=== PATIENT | male | born 1995 | race Caucasian/White ===

== ENCOUNTER 2018-07-29 20:40 | Emergency (ER) | payer BC ==
[2018-07-29] MEDS ORDERED: KETOROLAC 30 MG/ML INJ ONE (21:57)
[2018-07-29] MEDS ORDERED: DIAZEPAM 2 MG TABLET ONE (21:58)
--- NOTE | 2018-07-29 22:09 | ER ---
Nurse's Notes [facility] Name: Pramod Cornelius Age: 22 yrs Sex: Male : 1995 Arrival Date: 07/29/2018 Time: 20:45 Bed 10 Private MD: Goran Carrizales Diagnosis: Pain in left shoulder;Muscle spasm of back Presentation: 07/29 20:48 Presenting complaint: Patient states: "I was putting a harness on my dog and I got a aj1 sharp pain in my back and I couldn't stand up straight" Reports this occurred approximately 20 minutes ago. Transition of care: patient was not received from another setting of care. Onset of symptoms was July 29, 2018 at 18:28. Risk Assessment: Do you want to hurt yourself or someone else? Patient reports no desire to harm self or others. Initial Sepsis Screen: Does the patient meet any 2 criteria? No. Patient's initial sepsis screen is negative. Does the patient have a suspected source of infection? No. Patient's initial sepsis screen is negative. Care prior to arrival: None. 20:48 Method Of Arrival: Ambulatory aj1 20:48 Acuity: MAXIMILIAN 4 aj1 Triage Assessment: 20:49 General: Appears in no apparent distress. uncomfortable, Behavior is calm, cooperative, aj1 appropriate for age. Pain: Complains of pain in mid back area Pain currently is 8 out of 10 on a pain scale. Neuro: Level of Consciousness is awake, alert, obeys commands. Cardiovascular: Patient's skin is warm and dry. Respiratory: Airway is patent Respiratory effort is even, unlabored, Respiratory pattern is regular, symmetrical. Musculoskeletal: Range of motion: intact in all extremities. Historical: - Allergies: 20:49 Codeine; aj1 - Home Meds: 20:49 None [Active]; aj1 - PMHx: 20:49 Hypertension; SVT; aj1 - PSHx: 20:49 cardiac ablation; aj1 - Immunization history:: Flu vaccine is not up to date. - Social history:: Smoking status: Patient/guardian denies using tobacco. - Ebola Screening: : Patient denies travel to an Ebola-affected area in the 21 days before illness onset. Screenin:35 Abuse screen: Denies threats or abuse. Denies injuries from another. Nutritional ao screening: No deficits noted. Tuberculosis screening: No symptoms or risk factors identified. Fall Risk None identified. Assessment: 21:30 General: Appears in no apparent distress. uncomfortable, Behavior is appropriate for ao age, anxious. Pain: Complains of pain in back Pain currently is 10 out of 10 on a pain scale. Neuro: Level of Consciousness is awake, alert, obeys commands, Oriented to person, place, time, situation, Appropriate for age Moves all extremities. Full function. Cardiovascular: Capillary refill < 3 seconds Patient's skin is warm and dry. Respiratory: Airway is patent Respiratory effort is even, unlabored, Respiratory pattern is regular, symmetrical. GI: Abdomen is obese. : No signs and/or symptoms were reported regarding the genitourinary system. EENT: No signs and/or symptoms were reported regarding the EENT system. Derm: Skin is intact, Skin is pink, warm \\T\\ dry. normal, Skin temperature is warm. Musculoskeletal: Circulation, motion, and sensation intact. Reports pain in back. Injury Description: Fall from standing position. 22:28 Reassessment: Patient appears in no apparent distress at this time. DC instructions ao given to patient. patient agree with the POC and to Follow up with PCP. Vital Signs: 20:49 BP 153 / 98; Pulse 103; Resp 20; Temp 98.2; Pulse Ox 96% on R/A; Weight 132.9 kg (R); aj1 Height 5 ft. 10 in. (177.80 cm) (R); Pain 8/10; 22:28 BP 145 / 72; Pulse 92; Resp 18; Pulse Ox 100% ; ao 20:49 Body Mass Index 42.04 (132.90 kg, 177.80 cm) aj1 ED Course: 20:45 Patient arrived in ED. es 20:45 Goran Carrizales MD is Private Physician. es 20:49 Triage completed. aj1 20:49 Arm band placed on Patient placed in an exam room. aj1 21:04 Lina Walton [facility]-C [facility]. snw 21:04 Ti Bryant MD is Attending Physician. snw 21:25 Dennis Quintero, RN is Primary Nurse. ao 21:35 Patient has correct armband on for positive identification. Pulse ox on. NIBP on. ao 22:08 Goran Carrizales MD is Referral Physician. snw 22:28 No provider procedures requiring assistance completed. Patient did not have IV access ao during this emergency room visit. Administered Medications: 21:57 Drug: TORadol 60 mg Route: IM; Site: right deltoid; ao 21:59 Drug: Valium 2 mg Route: PO; ao Outcome: 22:09 Discharge ordered by . snw 22:28 Discharged to home ambulatory. ao 22:28 Condition: stable 22:28 Discharge instructions given to patient, Instructed on discharge instructions, follow up and referral plans. Demonstrated understanding of instructions, follow-up care, medications, Prescriptions given X 2. 22:29 Patient left the ED. ao Signatures: Ava Apple, RN RN aj1 Lina Walton, SENIOR LIVING SALES COUNSELOR-C SENIOR LIVING SALES COUNSELOR-Csnw Sindy Shaw Alex RN RN ao
--- NOTE | 2018-07-29 22:09 | EDPHYS ---
Physician Documentation [facility] Name: Pramod Cornelius Age: 22 yrs Sex: Male : 1995 Arrival Date: 07/29/2018 Time: 20:45 Bed 10 Private MD: Goran Carrizales ED Physician Ti Bryant HPI: 07/29 22:13 This 22 yrs old Male presents to ER via Ambulatory with complaints of Back snw Pain. 22:13 The patient presents with pain that is acute, and decreased range of motion. The snw symptoms are located in the left scapular area and left subscapular area. Onset: The symptoms/episode began/occurred suddenly, just prior to arrival. The pain does not radiate. Associated signs and symptoms: Pertinent positives: decreased ROM left shoulder. The problem was sustained when bending over, from twisting. Severity of symptoms: At their worst the symptoms were moderate, severe. The patient has not experienced similar symptoms in the past. It is unknown whether or not the patient has recently seen a physician. Historical: - Allergies: 20:49 Codeine; aj1 - Home Meds: 20:49 None [Active]; aj1 - PMHx: 20:49 Hypertension; SVT; aj1 - PSHx: 20:49 cardiac ablation; aj1 - Immunization history:: Flu vaccine is not up to date. - Social history:: Smoking status: Patient/guardian denies using tobacco. - Ebola Screening: : Patient denies travel to an Ebola-affected area in the 21 days before illness onset. ROS: 22:11 Constitutional: Negative for fever, chills, and weight loss, Eyes: Negative for injury, snw pain, redness, and discharge, ENT: Negative for injury, pain, and discharge, Neck: Negative for injury, pain, and swelling, Cardiovascular: Negative for chest pain, palpitations, and edema, Respiratory: Negative for shortness of breath, cough, wheezing, and pleuritic chest pain, Abdomen/GI: Negative for abdominal pain, nausea, vomiting, diarrhea, and constipation, Back: Negative for injury, positive for pain Skin: Negative for injury, rash, and discoloration, Neuro: Negative for headache, weakness, numbness, tingling, and seizure. 22:11 MS/extremity: Positive for pain, upper left back pain with increased discomfort on rotation of left shoulder. Exam: 22:11 Constitutional: This is a well developed, well nourished patient who is awake, alert, snw and in no acute distress. Head/Face: Normocephalic, atraumatic. Eyes: Pupils equal round and reactive to light, extra-ocular motions intact. Lids and lashes normal. Conjunctiva and sclera are non-icteric and not injected. Cornea within normal limits. Periorbital areas with no swelling, redness, or edema. ENT: Nares patent. No nasal discharge, no septal abnormalities noted. Tympanic membranes are normal and external auditory canals are clear. Oropharynx with no redness, swelling, or masses, exudates, or evidence of obstruction, uvula midline. Mucous membranes moist. Neck: Trachea midline, no thyromegaly or masses palpated, and no cervical lymphadenopathy. Supple, full range of motion without nuchal rigidity, or vertebral point tenderness. No Meningismus. Chest/axilla: Normal chest wall appearance and motion. Nontender with no deformity. No lesions are appreciated. Cardiovascular: Regular rate and rhythm with a normal S1 and S2. No gallops, murmurs, or rubs. Normal PMI, no JVD. No pulse deficits. Respiratory: Lungs have equal breath sounds bilaterally, clear to auscultation and percussion. No rales, rhonchi or wheezes noted. No increased work of breathing, no retractions or nasal flaring. Abdomen/GI: Soft, non-tender, with normal bowel sounds. No distension or tympany. No guarding or rebound. No evidence of tenderness throughout. Skin: Warm, dry with normal turgor. Normal color with no rashes, no lesions, and no evidence of cellulitis. MS/ Extremity: Pulses equal, no cyanosis. Neurovascular intact. Full, normal range of motion. Neuro: Awake and alert, GCS 15, oriented to person, place, time, and situation. Cranial nerves II-XII grossly intact. Motor strength 5/5 in all extremities. Sensory grossly intact. Cerebellar exam normal. Normal gait. 22:11 Back: pain, that is moderate, of the left subscapular area, ROM is painful, with rotation to the right, normal spinal alignment noted, CVA tenderness, is absent, muscle spasm, is appreciated in the left subscapular area. Vital Signs: 20:49 BP 153 / 98; Pulse 103; Resp 20; Temp 98.2; Pulse Ox 96% on R/A; Weight 132.9 kg (R); aj1 Height 5 ft. 10 in. (177.80 cm) (R); Pain 8/10; 22:28 BP 145 / 72; Pulse 92; Resp 18; Pulse Ox 100% ; ao 20:49 Body Mass Index 42.04 (132.90 kg, 177.80 cm) aj1 MDM: 21:04 Patient medically screened. snw 22:12 Data reviewed: vital signs, nurses notes. Data interpreted: Pulse oximetry: on room air snw is 96 %. Interpretation: acceptable. Counseling: I had a detailed discussion with the patient and/or guardian regarding: the historical points, exam findings, and any diagnostic results supporting the discharge/admit diagnosis, the presence of at least one elevated blood pressure reading (>120/80) during this emergency department visit, the need for outpatient follow up, to return to the emergency department if symptoms worsen or persist or if there are any questions or concerns that arise at home. Special discussion: I have referred the patient to see his PCP for further evaluation of high blood pressure. Based on the history and exam findings, there is no indication for further emergent testing or inpatient evaluation. I discussed with the patient/guardian the need to see the orthopedic surgeon for further evaluation of the symptoms. I discussed with the patient/guardian the need to see the primary care provider for further evaluation of the symptoms. Administered Medications: 21:57 Drug: TORadol 60 mg Route: IM; Site: right deltoid; ao 21:59 Drug: Valium 2 mg Route: PO; ao Disposition: 07/30 06:48 Co-signature as Attending Physician, Ti Bryant MD I agree with the assessment and michael plan of care. Disposition: 07/29/18 22:09 Discharged to Home. Impression: Pain in left shoulder, Muscle spasm of back. - Condition is Stable. - Discharge Instructions: Joint Pain, Muscle Cramps and Spasms, Musculoskeletal Pain, Shoulder Pain, Back Exercises, [id number], Cryotherapy, Heat Therapy. - Prescriptions for Diclofenac Sodium 75 mg Oral Tablet Sustained Release - take 1 tablet by ORAL route 2 times per day; 30 tablet. orphenadrine citrate 100 mg Oral Tablet Sustained Release - take 1 tablet by ORAL route 2 times per day As needed; 20 tablet. - Work release form, Medication Reconciliation Form, Thank You Letter, Antibiotic Education, Prescription Opioid Use form. - Follow up: Goran Carrizales MD; When: 2 - 3 days; Reason: Recheck today's complaints, Continuance of care, Re-evaluation by your physician. Follow up: Emergency Department; When: As needed; Reason: Worsening of condition. Signatures: Ava Apple RN RN aj1 Ti Bryant MD MD cha Therrien, Shelly, CENTER MANAGER-C CENTER MANAGER-Csnw Dennis Quintero RN RN ao Corrections: (The following items were deleted from the chart) 07/29 22:29 22:09 07/29/2018 22:09 Discharged to Home. Impression: Pain in left shoulder; Muscle ao spasm of back. Condition is Stable. Forms are Medication Reconciliation Form, Thank You Letter, Antibiotic Education, Prescription Opioid Use. Follow up: Goran Carrizales; When: 2 - 3 days; Reason: Recheck today's complaints, Continuance of care, Re-evaluation by your physician. Follow up: Emergency Department; When: As needed; Reason: Worsening of condition. snw
== END 2018-07-29 22:29 | disposition home or self-care (01) ==
LOC: ER 20:40
DX: M62.830 Muscle spasm of back (principal); I10 Essential (primary) hypertension; Z88.5 Allergy status to narcotic agent
CPT/HCPCS: 96372; 99283

== ENCOUNTER 2022-09-05 22:31 | Emergency (ER) | payer BC, SELFPAY ==
--- OUTSIDE RECORDS SUMMARY | 2022-09-05 22:34 | XMS REPORT | Continuity of Care Document ---
:1995 Author Organization [facility] t Address [address] [place] [address] [place] [address] Care Team Providers Name Role Phone Rowena Vance MD Primary Care Physician DEBBIE BIRD Attending Clinician Unavailable DEBBIE BIRD Attending Clinician Unavailable DEANNE RAJPUT Attending Clinician Unavailable Chepe Bethea Attending Clinician Unknown, Attending Attending Clinician Unavailable CHEPE GRAJEDA Attending Clinician Unavailable Deanne Rajput MD Attending Clinician [facility] Sleep [facility] Attending Clinician Unavailable Debbie Bird MD Attending Clinician Doctor Unassigned, [place] Attending Clinician Unavailable Rafaela Vasquez Attending Clinician RAFAELA SMITH Attending Clinician Unavailable Rowena Vance MD Attending Clinician ROWENA VANCE Attending Clinician Unavailable Lab, Ang - Db Attending Clinician Unavailable Kayce Khan Attending Clinician KAYCE ARIZA Attending Clinician Unavailable DEANNE RAJPUT Admitting Clinician Unavailable RAFAELA SMITH Admitting Clinician Unavailable ROWENA VANCE Admitting Clinician Unavailable Payers Payer Name Policy Type Policy Number Effective Date Expiration Date S [facility] [id number] 2022 00:00:00 Problems Condition Condition Condition Status Onset Resolution Last Treating Co mments Source Name Details Category Date Date Treatment Clinician Date No known No known Disease Unive rs active active ity of problems problems [facility] Allergies, Adverse Reactions, Alerts Allergy Allergy Status Severity Reaction(s) Onset Inactive Treating Comm ents Source Name Type Date Date Clinician Tomer Propensi Active Hallucinatio 2014-10 hallucin a Univers ty to ns 2-18 tions ity of adverse 00:00: [place] reaction 00 Medical s [place] CODEINE DRUG Active Hallucinates 2014-10 Uni vers INGREDI 218 ity of 00:00: [place] 00 Medical Branch Social History Social Habit Start Date Stop Date Quantity Comments Source History of Cigarette Smoker Universi ty of tobacco use [facility] Exposure to 2022-08-04 2022-08-14 Not sure [facility] SARS-CoV-2 00:00:00 11:32:00 [facility] (event) [place] Alcohol intake 2022-06-18 2022-06-18 .29 /d [facility] 00:00:00 00:00:00 [facility] Tobacco use and 2022-05-01 2022-05-01 Former smokeless Uni versity of exposure 00:00:00 00:00:00 tobacco user [facility] At 1995 [facility]00 [facility] Smoking Status Start Date Stop Date Source Ex-smoker 2022-05-01 00:00:00 2022-05-01 00:00:00 [facility] Medications Ordered Filled Start Stop Current Ordering Indication Dosage Frequency Signature Comments Components Source Medication Medication Date Date Medication? Clinician (SIG) Name Name ondansetron 2021-10- Yes [id number] 4mg Take 1 Univers 4 mg 0-26 08-20 tablet by ity of [place] 04[place] :00 every 8 Medica l (eight) Branch hours as needed for Nausea and Vomiting (N/V) for up to 5 days. ondansetron 2021-10- Yes [id number] 4mg Take 1 Univers 4 mg 0-26 - tablet by ity of disintegrat [place]:00[place] 04:[place] :00 every 8 Medica l (eight) Branch hours as needed for Nausea and Vomiting (N/V) for up to 5 days. carvediloL Yes [id number] 12.5mg Take 2 Univers 6.25 mg 9-26 tablets by ity of tablet 00:00: mouth in [place] [address] the [facility] morning [place] and 2 tablets in the evening. Take with meals. carvediloL 2022-0 Yes [id number] 12.5mg Take 2 Univers 6.25 mg 9-26 tablets by ity of tablet 00:00: mouth in [place] [address] the [facility] morning [place] and 2 tablets in the evening. Take with meals. carvediloL 2022-0 Yes [id number] 12.5mg Take 2 Univers 6.25 mg 9-26 tablets by ity of tablet 00:00: mouth in [place] [address] the [facility] morning [place] and 2 tablets in the evening. Take with meals. carvediloL 2-0 Yes [id number] 12.5mg Take 2 Univers 6.25 mg 9-26 tablets by ity of tablet 00:00: mouth in [place] [address] the [facility] morning [place] and 2 tablets in the evening. Take with meals. carvediloL 2-0 Yes [id number] 12.5mg Take 2 Univers 6.25 mg 9-26 tablets by ity of tablet 00:00: mouth in [address] morning [place] and 2 tablets in the evening. Take with meals. carvediloL 2021-0 Yes [id number] 12.5mg Take 2 Univers 6.25 mg 9-26 tablets by ity of tablet 00:00: mouth in [place] [address] the [facility] and 2 tablets in the evening. Take with meals. carvediloL 2-0 Yes [id number] 12.5mg Take 2 Univers 6.25 mg 9-26 tablets by ity of tablet 00:00: mouth in [address] and 2 tablets in the evening. Take with meals. carvediloL 2-0 Yes [id number] 6.25mg Take 1 Univers 6.25 mg 8-30 tablet by ity of tablet 00:00: mouth in [address] morning [place] and 1 tablet in the evening. Take with meals. lisinopriL 2022-0 Yes [id number] 10mg Take 1 U nivers 10 mg 8-30 tablet by ity of tablet 00:00: mouth at [place] [address] bedtime. [facility] Branch lisinopriL 2022-0 Yes [id number] 10mg Take 1 U nivers 10 mg 8-30 tablet by ity of tablet 00:00: mouth at [place] [address] bedtime. Medical Branch lisinopriL 0 Yes [id number] 10mg Take 1 U nivers 10 mg 8-30 tablet by ity of tablet 00:00: mouth at [place] [address] bedtime. Medical Branch lisinopriL 0 Yes [id number] 10mg Take 1 U nivers 10 mg 8-30 tablet by ity of tablet 00:00: mouth at [place] [address] bedtime. Medical Branch lisinopriL 0 Yes [id number] 10mg Take 1 U nivers 10 mg 8-30 tablet by ity of tablet 00:00: mouth at [place] [address] bedtime. Medical Branch lisinopriL 0 Yes [id number] 10mg Take 1 U nivers 10 mg 8-30 tablet by ity of tablet 00:00: mouth at [place] [address] bedtime. Medical Branch lisinopriL 0 Yes [id number] 10mg Take 1 U nivers 10 mg 8-30 tablet by ity of tablet 00:00: mouth at [place] [address] bedtime. Medical Branch lisinopriL 0 Yes [id number] 10mg Take 1 U nivers 10 mg 8-30 tablet by ity of tablet 00:00: mouth at [place] [address] bedtime. Medical Branch lisinopriL 0 Yes [id number] 10mg Take 1 U nivers 10 mg 8-30 tablet by ity of tablet 00:00: mouth at [place] [address] bedtime. Medical Branch carvediloL 202- No [id number] 6.25mg Take 1 Univers 6.25 mg 8-30 09-26 tablet by ity of tablet 00:00: 00:00 mouth in [place] 00 :00 the Medical morning Branch and 1 tablet in the evening. Take with meals. amoxicillin 2021-0 Yes 1{tbl} Take 1 Un galen -clavulanat 8-25 tablet by ity of e 875-125 00:00: [place] 00 the Medical tablet morning Branch and 1 tablet in the evening. amoxicillin 2021-0 Yes 1{tbl} Take 1 Un galen -clavulanat 8-25 tablet by ity of e 875-125 00:00: [place] per 00 the Medical tablet morning Branch and 1 tablet in the evening. amoxicillin 2022-0 Yes 1{tbl} Take 1 Un galen -clavulanat 8-25 tablet by ity of e 875-125 00:00: [place] per 00 the Medical tablet morning Branch and 1 tablet in the evening. amoxicillin 202-0 Yes 1{tbl} Take 1 Un galen -clavulanat 8-25 tablet by ity of e 875-125 00:00: [place] per 00 the Medical tablet morning Branch and 1 tablet in the evening. amoxicillin 202-0 Yes 1{tbl} Take 1 Un galen -clavulanat 8-25 tablet by ity of e 875-125 00:00: [place] per 00 the Medical tablet morning Branch and 1 tablet in the evening. amoxicillin 202-0 Yes 1{tbl} Take 1 Un galen -clavulanat 8-25 tablet by ity of e 875-125 00:00: [place] per 00 the Medical tablet morning Branch and 1 tablet in the evening. amoxicillin 2021-0 Yes 1{tbl} Take 1 Un galen -clavulanat 8-25 tablet by ity of e 875-125 00:00: [place] per 00 the Medical tablet morning Branch and 1 tablet in the evening. amoxicillin 202-0 Yes 1{tbl} Take 1 Un galen -clavulanat 8-25 tablet by ity of e 875-125 00:00: [place] per 00 the Medical tablet morning Branch and 1 tablet in the evening. amoxicillin 2021-0 Yes 1{tbl} Take 1 Un galen -clavulanat 8-25 tablet by ity of e 875-125 00:00: [place] mg per 00 the Medical tablet morning Branch and 1 tablet in the evening. lisinopriL 2021-0 2021- No [id number] 10mg Take 1 Univers 10 mg 8-16 08-30 tablet by ity of tablet 00:00: 00:00 mouth at [place] 00 :00 bedtime Medical for 15 days. lisinopriL 2021-0 2021- No [id number] 10mg Take 1 Univers 10 mg 8-16 08-30 tablet by ity of tablet 00:00: 00:00 mouth at [place] 00 :00 bedtime Medical for 15 Branch days. naproxen 2022-0 Yes [id number] 500mg Take 1 Univers 500 mg 7-07 9106 tablet by ity of tablet 00:00: mouth [place] 00 every 8 Medical (eight) Branch hours as needed for Pain (scale 4-6). naproxen 2022-0 Yes [id number] 500mg Take 1 Univers 500 mg 7-07 9106 tablet by ity of tablet 00:00: mouth [place] 00 every 8 Medical (eight) Branch hours as needed for Pain (scale 4-6). naproxen 2022-0 Yes [id number] 500mg Take 1 Univers 500 mg 7-07 9106 tablet by ity of tablet 00:00: mouth [place] 00 every 8 Medical (eight) Branch hours as needed for Pain (scale 4-6). naproxen 2022-0 Yes [id number] 500mg Take 1 Univers 500 mg 7-07 9106 tablet by ity of tablet 00:00: mouth [place] 00 every 8 Medical (eight) Branch hours as needed for Pain (scale 4-6). naproxen 2022-0 Yes [id number] 500mg Take 1 Univers 500 mg 7-07 9106 tablet by ity of tablet 00:00: mouth [place] 00 every 8 Medical (eight) Branch hours as needed for Pain (scale 4-6). naproxen 2022-0 Yes [id number] 500mg Take 1 Univers 500 mg 7-07 9106 tablet by ity of tablet 00:00: mouth [place] 00 every 8 Medical (eight) Branch hours as needed for Pain (scale 4-6). naproxen 2022-0 Yes [id number] 500mg Take 1 Univers 500 mg 7-07 9106 tablet by ity of tablet 00:00: mouth [place] 00 every 8 Medical (eight) Branch hours as needed for Pain (scale 4-6). naproxen 2022-0 Yes [id number] 500mg Take 1 Univers 500 mg 7-07 9106 tablet by ity of tablet 00:00: mouth [place] 00 every 8 Medical (eight) Branch hours as needed for Pain (scale 4-6). naproxen 2022-0 Yes [id number] 500mg Take 1 Univers 500 mg 7-07 9106 tablet by ity of tablet 00:00: mouth [place] 00 every 8 Medical (eight) Branch hours as needed for Pain (scale 4-6). Vital Signs Vital Name Observation Time Observation Value Comments Source Systolic blood 2022-08-14 16:37:00 139 mm[Hg] Univer sity of pressure [place] [facility] Diastolic blood 2022-08-14 16:37:00 94 mm[Hg] Unive rsity of [facility] Branch Heart rate 2022-08-14 16:37:00 86 /min Universi ty of [facility] Branch Body temperature 2022-08-14 16:37:00 37.17 [facility] Respiratory rate 2022-08-14 16:37:00 18 /min [facility] ersity of [facility] Branch Body height 2022-08-14 16:37:00 177.8 cm Universi ty of [place] [facility] Body weight 2022-08-14 16:37:00 127.914 kg Universi ty of [facility] Branch BMI 2022-08-14 16:37:00 40.46 kg/m2 Universi ty of [place] [facility] Oxygen saturation in 2022-08-14 16:37:00 99 /min University of Arterial blood by [place] Adioso damien Pulse oximetry Branch Systolic blood 2022-06-18 19:40:00 151 mm[Hg] Univer sity of pressure [facility] Branch Diastolic blood 2022-06-18 19:40:00 101 mm[Hg] [facility] Branch Heart rate 2022-06-18 19:40:00 100 /min Universi ty of [place] [facility] Body temperature 2022-06-18 19:39:00 36.72 [facility] Respiratory rate 2022-06-18 19:39:00 18 /min [facility] ersity of [place] [facility] Body height 2022-06-18 19:39:00 177.8 cm Universi ty of [place] [facility] Body weight 2022-06-18 19:39:00 126.1 kg Universi ty of [place] [facility] BMI 2022-06-18 19:39:00 39.89 kg/m2 Universi ty of [place] [facility] Oxygen saturation in 2022-06-18 19:39:00 97 /min University of Arterial blood by [place] Adioso damien Pulse oximetry Branch Procedures Procedure Date / Time Performed Performing Clinician Sourc e POCT MOLECULAR FLU 2022-08-14 16:58:00 Unknown, Attending Univer sity [facility] POCT MOLECULAR STREP 2022-08-14 16:43:00 Unknown, Attending Gabriele andujar [facility] SLEEP STUDY DATA 2022-07-18 05:01:00 Doctor Unassigned, No [facility] REPORT Name Medical Branch Encounters Start End Encounter Admission Attending Care Care Encounter Source Date/Time Date/Time Type Type Clinicians Facility Department ID 2022-08-14 2022-08-14 Outpatient R REGULO [facility] [id number] Univers 14:40:00 14:40:00 DEANNE villanuevay o f [facility] 2022-08-14 2022-08-14 Urgent MaryChepe bay [facility] 1.2.840.114 [id number] Univers 11:40:00 12:00:00 Care Unknown, Attending [facility] 350.1.13.10 ity of [place] 4.2.7.2.686 Giovani as [place]?BLEA [phone] [facility] [address] MEDICAL OFFICE [facility] 2022-08-14 2022-08-14 Outpatient R SINGH [facility] [id number] Univers 11:40:00 11:40:00 CHEPE valente [facility] 2022-08-14 2022-08-14 Letter Singh [facility] 1.2.840.114 [id number] Univers 00:00:00 00:00:00 (Out) [facility] 350.1.13.10 it y of [place] 4.2.7.2.686 Giovani as [place]?BLEA [phone] [address] MEDICAL OFFICE [facility] 2022-07-30 2022-07-30 [facility] [id number] Univers 09:20:00 09:20:00 DEANNE ity o f [facility] 2022-07-25 2022-07-25 Telephone [facility] [id number] Univers 00:00:00 00:00:00 [facility] 350.1.13.10 [place]y of [place] 4.2.7.2.686 [place] [id number] Dc dical NAL 059 Branch [facility] 2022-07-19 2022-07-19 Telephone [facility] [id number] [id number] Univers 00:00:00 00:00:00 Deanne CLOUD 350.1.13.10 ity of [facility] 4.2.7.2.686 [place] [facility] [phone] Dc dical [address] 2022-07-18 2022-07-18 Decision Support Analyst [facility] 1.2 .840.114 [id number] Univers 08:30:00 08:45:00 Visit Debbie Bird 350.1.13. 10 ity of [facility] 4.2.7.2.686 [place] [id number] [facility] [address] 2022-07-18 2022-07-18 Outpatient R DEBBIE BIRD [facility] [id number] Univers 08:30:00 08:30:00 DEBBIE BIRD [facility] 2022-07-18 2022-07-18 Outpatient R TIFFANIE BIRDLAJulian [facility] [id number] Univers 08:30:00 08:30:00 DEBBIE BIRD [facility] 2022-07-18 2022-07-18 Letter Doctor JEFFREY 1.2.840.114 [id number] Univers 00:00:00 00:00:00 (Out) Unassigned, JASS 350.1.13.10 ity of [place] [facility] 4.2.7.2.686 Giovani as [id number] [facility] [address] 2022-07-18 2022-07-18 Orders Doctor JEFRFEY 1.2.840.114 [id number] Univers 00:00:00 00:00:00 Only Unassigned, JASS 350.1.13.10 ity of [place] [facility] 4.2.7.2.686 Giovani as [id number] [facility] [address] 2022-07-01 2022-07-01 Outpatient R REGULO [facility] [id number] Univers 07:58:22 23:59:00 DEANNE valente o f [facility] 2022-07-01 2022-07-01 Outpatient R REGULO, [facility] [id number] Univers 08:00:00 08:00:00 DEANNE aviles [facility] 2022-06-18 2022-06-18 Outpatient R REGULO, [facility] [id number] Univers 14:20:00 15:03:01 DEANNE aviles [facility] 2022-06-18 2022-06-18 Office Regulo, [facility] 1.2.840.114 [id number] Univers 14:20:00 15:03:01 Visit [facility] 350.1.13.10 ity of [facility] 4.2.7.2.686 [place] [facility] [id number] Dc dical NAL 059 [facility] 2022-06-18 2022-06-18 Outpatient R REGULO, [facility] [id number] Univers 14:20:00 15:03:01 DEANNE rm [facility] 2022-06-04 2022-06-04 Emergency [facility] 1..840.114 [id number] Univers 10:15:00 14:21:00 Rafaela [place] 350.1.13.10 i ty of [place] 4.2.7.2.686 [place] [id number] [address] 2022-06-04 2022-06-04 Emergency X [facility] ERT [id number] Univers 10:15:00 14:21:00 RAFAELA itfreedom [facility] 2022-06-04 2022-06-04 Telephone [facility] 1.2.378.102 [id number] Univers 00:00:00 00:00:00 [employer] 350.1.13.10 it y of [place] 4.2.7.2.686 Giovani as [place]?BLEA [id number] Dc dical KNEY [address] MEDICAL OFFICE BUILDING 2022-05-14 2022-05-14 Telephone [facility] 1.2.305.915 [id number] Univers 00:00:00 00:00:00 Rowena HEALTH 350.1.13.10 it y of [place] 4.2.7.2.686 Giovnai as [place]?BLEA [id number] [facility] [address] MEDICAL OFFICE [facility] 2022-05-09 2022-05-09 Outpatient R RAJIV [facility] [id number] Univers 08:01:34 23:59:00 ROWENA valente [facility] 2022-05-09 2022-05-09 [facility] 1.2.840.114 [id number] Univers 08:00:00 23:59:00 Encounter Rowena BEVERLYYASMIN 350.1.13.10 ity of [place] 4.2.7.2.686 [place] [facility] [phone] [facility] [address] 2022-05-01 2022-05-01 Decision Support Analyst Lab, Ang - Db [facility] 1.2.840.1 14 [id number] Univers 14:00:00 14:14:36 Visit Rowena Vance [facility] 350.1.13.10 ity of [place] 4.2.7.2.686 Giovani as [place]?BLEA [id number] [address] MEDICAL OFFICE [facility] 2022-05-01 2022-05-01 [facility] [id number] Univers 14:00:00 14:00:00 ROWENA valente [facility] 2022-05-01 2022-05-01 Decision Support Analyst Lab, Ang - Db [facility] 1.2.840.1 14 [id number] Univers 08:30:00 08:45:00 Visit Rowena Vance [facility] 350.1.13.10 ity of [place] 4.2.7.2.686 Giovani as [place]?BLEA [id number] [address] MEDICAL OFFICE [facility] 2022-05-01 2022-05-01 Outpatient R RAJIV [facility] [id number] Univers 08:00:00 08:39:33 ROWENA valente [facility] 2022-05-01 2022-05-01 Office [facility] 1.2.840.114 [id number] Univers 08:00:00 08:30:00 Visit Rowena [facility] 350.1.13.10 it y of [place] 4.2.7.2.686 Giovani as [place]?BLEA [id number] [address] OFFICE [facility] 2022-05-01 2022-05-01 [facility]patient [facility] [id number] Univers 08:00:00 08:00:00 ROWENA valente [facility] 2022-04-25 2022-04-25 Urgent [facility] 1.2.840.114 [id number] Univers 11:40:00 12:00:00 [facility] 350.1.13.10 ambrosio [facility] 4.2.7.2.686 Giovani as [place]?BLEA [id number] [address] OFFICE [facility] 2022-04-25 2022-04-25 Outpatient R [facility] [id number] Univers 11:40:00 11:40:00 KAYCE valente o [facility] Results Test Description Test Time Test Comments Results Result Comments Source POCT MOLECULAR FLU 2022-08-14 17:09:53 Test Item Value Reference Range Interpretation Comme nts POCT Molecular FluA (test code = 85568-9) Negative Negative POCT Molecular FluB (test code = 31193-1) Negative Negative Lab Interpretation (test code = 16799-3) Normal [facility] [id number] 16:50:41 Test Item Value Reference Range Interpretation Comments POCT Molecular Strep (test code = Negative Negative 96737-5) Lab Interpretation (test code = Normal 48472-8) [facility]
[2022-09-05 23:43] LABS: Absolute Lymphocytes (CBC) 1.7 K/uL (0.7-4.9); Hematocrit 45.3 % (39.6-49.0); Lymphocytes % 21.1 % (15.3-44.8); MCV 91.1 fL (80-100); MPV 8.1 fL (7.6-11.3); RBC Red Blood Cell Count 4.98 M/uL (4.33-5.43)
[2022-09-05 23:45] LABS: Protime INR 0.95
[2022-09-06 00:16] LABS: Magnesium 2.1 mg/dL (1.8-2.4)
[2022-09-06] MEDS ORDERED: ASPIRIN 81 MG CHEWABLE TABLET ONE (00:49)
[2022-09-06] MEDS ORDERED: carvediloL 6.25 MG TAB ONE (00:49)
[2022-09-06 01:37] LABS: Urine Blood Negative (Negative); Urine Glucose Negative (Negative); Urine Protein Negative (Negative); Urine Specific Gravity >=1.030 (1.005-1.030)
[2022-09-06 01:56] LABS: Barbiturates NEGATIVE (NEGATIVE); Benzodiazepines NEGATIVE (NEGATIVE); Cocaine NEGATIVE (NEGATIVE); METHAMPHETAM NEGATIVE (NEGATIVE); Methadone NEGATIVE (NEGATIVE); Opiates NEGATIVE (NEGATIVE); Phencyclidine NEGATIVE (NEGATIVE); THC Cannibis NEGATIVE (NEGATIVE)
--- NOTE | 2022-09-06 02:35 | EDPHYS ---
Physician Documentation [facility] Name: Pramod Cornelius Age: 26 yrs Sex: Male : 1995 Arrival Date: 09/05/2022 Time: 22:40 Bed 16 Private MD: ED Physician Aston Currie HPI: 09/05 23:18 This 26 yrs old Male presents to ER via Ambulatory with complaints of High cp Blood Pressure. 23:18 The patient has elevated blood pressure and discovered this at home. cp 23:18 Onset: The symptoms/episode began/occurred today. cp 23:18 Severity of symptoms: in the emergency department the blood pressure is unchanged. cp 23:18 Patient reports running out of blood pressure medicine 3 days ago. Has RX at pharmacy cp but not ready for pick-up. Patient reports palpitations today, becoming lightheaded and almost passing out with numbness down left arm earlier today. Denies chest pain. Currently just feels "tired". Historical: - Allergies: 23:12 Codeine; bb - Home Meds: 23:12 carvedilol oral [Active]; bb - PMHx: 23:12 Hypertension; SVT; bb - Immunization history:: Client reports receiving the 2nd dose of the Covid vaccine. - Social history:: Smoking status: Reported history of juuling and/or vaping. ROS: 23:20 Constitutional: Negative for body aches, chills, fever, poor PO intake. cp 23:20 Eyes: Negative for injury, pain, redness, and discharge. cp 23:20 ENT: Negative for drainage from ear(s), ear pain, sore throat, difficulty swallowing, difficulty handling secretions. 23:20 Cardiovascular: Positive for palpitations, Negative for chest pain, edema. 23:20 Respiratory: Positive for shortness of breath, at rest. Negative for cough, wheezing. 23:20 Abdomen/GI: Negative for abdominal pain, nausea, vomiting, and diarrhea. 23:20 Skin: Negative for cellulitis, rash. 23:20 Neuro: Positive for near syncope, weakness, Negative for altered mental status, dizziness, headache. Exam: 23:25 ECG was reviewed by the Attending Physician. cp 23:28 Constitutional: The patient appears in no acute distress, alert, awake, cp non-diaphoretic, non-toxic, well developed, well nourished, obese. 23:28 Head/Face: Normocephalic, atraumatic. cp 23:28 Eyes: Periorbital structures: appear normal, Pupils: equal, round, and reactive to light and accomodation, Extraocular movements: intact throughout, Conjunctiva: normal, no exudate, no injection, Sclera: no appreciated abnormality, Lids and lashes: appear normal, bilaterally. 23:28 ENT: External ear(s): are unremarkable, Nose: is normal, Mouth: Lips: moist, Oral mucosa: pink and intact, moist, Posterior pharynx: Airway: no evidence of obstruction, patent. 23:28 Neck: ROM/movement: is normal, is supple, without pain, no range of motions limitations, no nuchal rigidity. 23:28 Chest/axilla: Inspection: normal, Palpation: is normal, no crepitus, no tenderness. 23:28 Cardiovascular: Rate: tachycardic, Rhythm: regular, Heart sounds: murmur, not appreciated, Edema: is not appreciated, JVD: is not appreciated. 23:28 Respiratory: the patient does not display signs of respiratory distress, Respirations: normal, no use of accessory muscles, no retractions, labored breathing, is not present, Breath sounds: are clear throughout, no decreased breath sounds, no stridor, no wheezing. 23:28 Abdomen/GI: Inspection: abdomen appears normal, Palpation: abdomen is soft and non-tender, in all quadrants. 23:28 Neuro: Orientation: to person, place \\T\\ time. Mentation: is normal, Cerebellar function: Romberg testing is negative, Motor: moves all fours, strength is normal, Sensation: no obvious gross deficits. Vital Signs: 23:11 BP 151 / 106; Pulse 104; Resp 16 S; Temp 98.5(O); Pulse Ox 95% on R/A; Weight 127.01 kg bb (R); Height 5 ft. 10 in. (177.80 cm) (R); 23:56 BP 154 / 107; Pulse 104; Resp 20 S; Pulse Ox 97% on R/A; bb 09/06 00:45 BP 137 / 91; Pulse 88; Resp 14; Pulse Ox 96% ; vc1 00:55 BP 137 / 91; vc1 01:30 BP 134 / 93; Pulse 85; Resp 19; Pulse Ox 95% on R/A; vc1 02:00 BP 133 / 95; Pulse 84; Resp 18; Pulse Ox 18% ; vc1 09/05 23:11 Body Mass Index 40.18 (127.01 kg, 177.80 cm) bb MDM: 09/05 23:00 Patient medically screened. 09/06 02:23 Data reviewed: vital signs, nurses notes, lab test result(s), EKG, radiologic studies, cp CT scan, plain films. 02:23 Differential diagnosis: hypertensive crisis, Malignant HTN, CVA, intracerebral cp hemorrhage, acute TX. Test interpretation: by ED physician or midlevel provider: ECG, plain radiologic studies. Counseling: I had a detailed discussion with the patient and/or guardian regarding: the historical points, exam findings, and any diagnostic results supporting the discharge/admit diagnosis, the presence of at least one elevated blood pressure reading (>120/80) during this emergency department visit, lab results, radiology results, the need for outpatient follow up, a family practitioner, to return to the emergency department if symptoms worsen or persist or if there are any questions or concerns that arise at home. Response to treatment: the patient's symptoms have markedly improved after treatment, and as a result, I will discharge patient. 09/05 23:18 Order name: Basic Metabolic Panel; Complete Time: 00:36 09/06 00:36 Interpretation: Normal except: GLUC 113; BUN 21. 09/05 23:18 Order name: CBC with Diff; Complete Time: 00:36 09/05 23:18 Order name: D-Dimer; Complete Time: 00:36 09/05 23:18 Order name: Magnesium; Complete Time: 00:36 09/05 23:18 Order name: NT PRO-BNP; Complete Time: 00:36 09/05 23:18 Order name: PT-INR; Complete Time: 00:36 09/05 23:18 Order name: Troponin HS; Complete Time: 00:36 09/05 23:18 Order name: XRAY Chest (1 view) 09/05 23:18 Order name: EKG; Complete Time: 23:18 09/06 00:37 Order name: UDS; Complete Time: 02:10 09/06 00:40 Order name: CT Head Brain wo Cont 09/06 01:37 Order name: Urine Dipstick-Ancillary; Complete Time: 02:10 EDMS 09/06 02:10 Interpretation: UKET Trace; Reviewed. cp 09/05 23:18 Order name: Cardiac monitoring; Complete Time: 23:25 cp 09/05 23:18 Order name: EKG - Nurse/Tech; Complete Time: 23:25 cp 09/05 23:18 Order name: IV Saline Lock; Complete Time: 23:34 cp 09/05 23:18 Order name: Labs collected and sent; Complete Time: 23:34 cp 09/05 23:18 Order name: O2 Per Protocol; Complete Time: 23:25 cp 09/05 23:18 Order name: O2 Sat Monitoring; Complete Time: 23:26 cp 09/06 00:37 Order name: Urine Dipstick-Ancillary (obtain specimen); Complete Time: 01:32 cp EC/17 23:25 Rate is 95 beats/min. Rhythm is regular. NM interval is normal. QRS interval is normal. cp QT interval is normal. T waves are Inverted in lead aVR. Interpreted by me. Reviewed by me. Administered Medications: 09/06 00:54 Drug: carvedilol 12.5 mg Route: PO; vc1 01:53 Follow up: Response: No adverse reaction vc1 00:54 Drug: Aspirin Chewable Tablet 324 mg Route: PO; vc1 01:53 Follow up: Response: No adverse reaction vc1 Disposition: 03:05 Co-signature as Attending Physician, Aston Currie MD I agree with the assessment and kdr plan of care. Disposition Summary: 09/06/22 02:34 Discharge Ordered Location: Home cp Problem: new cp Symptoms: have improved cp Condition: Stable cp Diagnosis - Palpitations cp - Hypertensive heart disease without heart failure cp - Syncope Near cp Followup: cp - With: Private Physician - When: 2 - 3 days - Reason: Recheck today's complaints Discharge Instructions: - Discharge Summary Sheet cp - Hypertension, Adult cp - Near-Syncope cp - Palpitations cp - Aspirin and Your Heart cp - How to Take Your Blood Pressure cp Forms: - Medication Reconciliation Form cp - Thank You Letter cp - Antibiotic Education cp - Prescription Opioid Use cp Prescriptions: - Carvedilol 12.5 mg Oral Tablet - take 1 tablet by ORAL route 2 times per day with food; 60 tablet; Refills: 0, cp Product Selection Permitted Signatures: Dispatcher [employer] Aston Reyez MD MD kdr Ballard, Brenda, RN RN bb Ti Hammer PA PA cp Calcote, Vanessa, RN RN vc1
--- NOTE | 2022-09-06 02:35 | ER ---
Nurse's Notes [facility] Name: Pramod Cornelius Age: 26 yrs Sex: Male : 1995 Arrival Date: 09/05/2022 Time: 22:40 Bed 16 Private MD: Diagnosis: Palpitations;Hypertensive heart disease without heart failure;Syncope Near Presentation: 09/05 23:11 Chief complaint: Patient states: he has high blood pressure and is out of his medicine bb for several days and his blood pressure today is high. Coronavirus screen: At this time, the client does not indicate any symptoms associated with coronavirus-19. Ebola Screen: No symptoms or risks identified at this time. Initial Sepsis Screen: Does the patient meet any 2 criteria? No. Patient's initial sepsis screen is negative. Does the patient have a suspected source of infection? No. Patient's initial sepsis screen is negative. Risk Assessment: Do you want to hurt yourself or someone else? Patient reports no desire to harm self or others. Onset of symptoms is unknown. 23:11 Method Of Arrival: Ambulatory bb 23:11 Acuity: MAXIMILIAN 3 bb Historical: - Allergies: 23:12 Codeine; bb - Home Meds: 23:12 carvedilol oral [Active]; bb - PMHx: 23:12 Hypertension; SVT; bb - Immunization history:: Client reports receiving the 2nd dose of the Covid vaccine. - Social history:: Smoking status: Reported history of juuling and/or vaping. Screenin:13 Abuse screen: Denies threats or abuse. Nutritional screening: No deficits noted. bb Tuberculosis screening: No symptoms or risk factors identified. Fall Risk None identified. Assessment: 23:13 General: Appears in no apparent distress. Behavior is calm, cooperative. Pain: Denies bb pain. Neuro: Level of Consciousness is awake, alert, obeys commands, Oriented to person, place, time, situation. Cardiovascular: Capillary refill < 3 seconds Patient's skin is warm and dry. Edema is absent. Rhythm is sinus tachycardia. Respiratory: Respiratory effort is even, unlabored, Respiratory pattern is regular. GI: No signs and/or symptoms were reported involving the gastrointestinal system. Derm: Skin is pink, warm \T\ dry. Musculoskeletal: Circulation, motion, and sensation intact. 23:56 Reassessment: Patient is alert, oriented x 3, equal unlabored respirations, skin bb warm/dry/pink. awaiting diagnostic results. Vital Signs: 23:11 BP 151 / 106; Pulse 104; Resp 16 S; Temp 98.5(O); Pulse Ox 95% on R/A; Weight 127.01 kg bb (R); Height 5 ft. 10 in. (177.80 cm) (R); 23:56 BP 154 / 107; Pulse 104; Resp 20 S; Pulse Ox 97% on R/A; bb 09/06 00:45 BP 137 / 91; Pulse 88; Resp 14; Pulse Ox 96% ; vc1 00:55 BP 137 / 91; vc1 01:30 BP 134 / 93; Pulse 85; Resp 19; Pulse Ox 95% on R/A; vc1 02:00 BP 133 / 95; Pulse 84; Resp 18; Pulse Ox 18% ; vc1 09/05 23:11 Body Mass Index 40.18 (127.01 kg, 177.80 cm) ED Course: 09/05 22:40 Patient arrived in ED. [id number] 22:45 Ti Hammer PA is PHCP. cp 22:45 Aston Currie MD is Attending Physician. cp 23:09 Syeda Pratt RN is Primary Nurse. vc1 23:12 Triage completed. bb 23:12 Arm band placed on Patient placed in an exam room, on a stretcher, on security monitor, bb on pulse oximetry. 23:13 Patient has correct armband on for positive identification. Bed in low position. Call bb light in reach. Side rails up X 1. potline monitor on. Pulse ox on. NIBP on. 23:25 EKG done. bb 23:29 Inserted saline lock: 20 gauge in left antecubital area, using aseptic technique. Blood vc1 collected. 23:56 XRAY Chest (1 view) In Process Unspecified. EDMS 09/06 01:57 CT Head Brain wo Cont In Process Unspecified. EDMS 02:53 No provider procedures requiring assistance completed. IV discontinued, intact, vc1 bleeding controlled, No redness/swelling at site. Pressure dressing applied. Administered Medications: 00:54 Drug: carvedilol 12.5 mg Route: PO; vc1 01:53 Follow up: Response: No adverse reaction vc1 00:54 Drug: Aspirin Chewable Tablet 324 mg Route: PO; vc1 01:53 Follow up: Response: No adverse reaction vc1 Medication: 09/05 23:13 VIS not applicable for this client. bb Outcome: 09/06 02:34 Discharge ordered by . cp 02:53 Discharged to home ambulatory, with significant other. vc1 02:53 Condition: good 02:53 Discharge instructions given to patient, Instructed on discharge instructions, follow up and referral plans. medication usage, Demonstrated understanding of instructions, follow-up care, medications, Prescriptions given X 1. 02:54 Patient left the ED. vc1 Signatures: Dispatcher [employer] EDMS Sintia Cheng RN RN bb Ti Hammer PA PA cp Jeffries, Jennifer [id number] Syeda Pratt RN RN vc1
[2022-09-06 02:58] VITALS: TEMP 98.5
[2022-09-06 03:04] VITALS: BP 133/95; O2SAT 18
--- NOTE | 2022-09-06 11:46 | RAD REPORT ---
EXAM DESCRIPTION: RAD - Chest Single View - 09/05/2022 11:54 pm ' CLINICAL HISTORY: The patient is 26 years old and is Male; SOB TECHNIQUE: Frontal view of the chest. COMPARISON: No relevant prior studies available. FINDINGS: Lungs: Unremarkable. No consolidation. Pleural space: Unremarkable. No pneumothorax. Heart: Unremarkable. Mediastinum: Unremarkable. Bones/joints: Unremarkable. IMPRESSION: No acute findings in the chest. Electronically signed by: Mo Ramos MD 09/06/2022 12:10 AM ENGINEER FISHING VESSEL Due to temporary technical issues with the PACS/Fluency reporting system, reports are being signed by the in house radiologists without review as a courtesy to insure prompt reporting. The interpreting radiologist is fully responsible for the content of the report
--- NOTE | 2022-09-06 12:20 | RAD REPORT ---
EXAM DESCRIPTION: CT - Head Brain Wo Cont - 09/06/2022 6:48 am CLINICAL HISTORY: The patient is 26 years old and is Male; near syncope, weakness, htn TECHNIQUE: Axial computed tomography images of the head/brain without intravenous contrast. Sagitt al and coronal reformatted images were created and reviewed. This CT exam was performed using one o r more of the following dose reduction techniques: automated exposure control, adjustment of the mA and/or kV according to patient size, and/or use of iterative reconstruction technique. COMPARISON: No relevant prior studies available. FINDINGS: Brain: Unremarkable. No hemorrhage. No significant white matter disease. No edema. Ventricles: Unremarkable. No ventriculomegaly. Bones/joints: Unremarkable. No acute fracture. Soft tissues: Unremarkable. Sinuses: Opacification of the left maxillary sinus. Mastoid air cells: Unremarkable as visualized. No mastoid effusion. IMPRESSION: No acute intracranial abnormality. Electronically signed by: Mo Ramos MD 09/06/2022 2:20 AM MANAGER FILM Due to temporary technical issues with the PACS/Fluency reporting system, reports are being signed by the in house radiologists without review as a courtesy to insure prompt reporting. The interpreting radiologist is fully responsible for the content of the report
--- NOTE | 2022-09-07 19:15 | EKG ---
Test Date: 2022-09-05 Test Time: 23:21:30 Senior Game Advisor: GURMEET MEASUREMENT RESULTS: Intervals: Rate: 95 CO: 158 QRSD: 86 QT: 340 QTc: 427 [place]: P: 33 CO: 158 QRS: 46 T: 24 INTERPRETIVE STATEMENTS: Normal sinus rhythm Normal ECG Compared to ECG 07/20/2016 15:38:31 No significant changes Electronically Signed On 09-07-22 19:10:45 PARAPROFESSIONAL AIDE by Paul Ritter
== END 2022-09-06 02:54 | disposition home or self-care (01) ==
LOC: ER 22:31
DX: I11.9 Hypertensive heart disease without heart failure (principal); R55 Syncope and collapse
CPT/HCPCS: 36415; 70450; 71045; 80048; 80307; 81003; 83735; 83880; 84484; 85025; 85379; 85610; 93005; 99285

== ENCOUNTER 2022-11-29 07:41 | Emergency (ER) | payer BC, SELFPAY ==
--- OUTSIDE RECORDS SUMMARY | 2022-11-29 07:44 | XMS REPORT | Continuity of Care Document ---
:1995 Author Organization [facility] t Address [address] [place] [address] Care Team Providers Name Role Phone Rowena Vance MD Primary Care Physician DEANNE RAJPUT Attending Clinician Unavailable Rowena Vance MD Attending Clinician ROWENA VANCE Attending Clinician Unavailable JANINE PRESSLEY Attending Clinician Unavailable Deanne Rajput MD Attending Clinician ADALID FRIEDMAN Attending Clinician Unavailable Adalid Friedman MD Attending Clinician King ALF MD, James C Attending Clinician Unknown, Attending Attending Clinician Unavailable JULIA MCKEON III Attending Clinician Unavailable DEBBIE BIRD Attending Clinician Unavailable DEBBIE BIRD Attending Clinician Unavailable Chepe Bethea Attending Clinician CHEPE GRAJEDA Attending Clinician Unavailable [facility] Attending Clinician Unavailable Debbie Bird MD Attending Clinician Doctor Unassigned, [place] Attending Clinician Unavailable Rafaela Vasquez Attending Clinician RAFAELA SMITH Attending Clinician Unavailable Lab, Ang - Db Attending Clinician Unavailable Kayce Khan Attending Clinician KAYCE ARIZA Attending Clinician Unavailable ADALID FRIEDMAN Admitting Clinician Unavailable DEANNE RAJPUT Admitting Clinician Unavailable RAFAELA SMITH Admitting Clinician Unavailable ROWENA VANCE Admitting Clinician Unavailable Payers Payer Name Policy Type Policy Number Effective Date Expiration Date S fletcher [facility] [id number] 2022 00:00:00 Problems Condition Condition Condition Status Onset Resolution Last Treating Co mments Source Name Details Category Date Date Treatment Clinician Date Primary Primary Disease Active Univers hypertensi hypertensi 206 it y of on on 00:00: [address] No known No known Disease Unive rs active active ity of problems problems [facility] Allergies, Adverse Reactions, Alerts Allergy Allergy Status Severity Reaction(s) Onset Inactive Treating Comm ents Source Name Type Date Date Clinician Codeine Propensi Active Hallucinatio 2014-10 hallucin a Univers ty to ns 12-07 [place] ity of adverse 00:00: ucination [place] reaction 00 shallucin Medic al s ations Branch CODEINE DRUG Active Hallucinates 2014-10 Uni vers INGREDI 12-07 ity of 00:00: [address] Social History Social Habit Start Date Stop Date Quantity Comments Source History of Cigarette Smoker Universi ty of tobacco use [facility] Exposure to 2022-11-15 2022-11-25 Not sure [facility] SARS-CoV-2 00:00:00 08:47:00 [facility] (event) [place] Alcohol intake 2022-11-25 2022-11-25 .29 /d [facility] 00:00:00 00:00:00 [facility] Tobacco use and 2022-05-01 2022-05-01 Former smokeless Uni versity of exposure 00:00:00 00:00:00 tobacco user [facility] Sex Ass[birth year] At [birth year] Universit y of 00:00:00 00:00:00 [facility] Smoking Status Start Date Stop Date Source Ex-smoker 2022-05-01 00:00:00 2022-05-01 00:00:00 Universi ty of [facility] Medications Ordered Filled Start Stop Current Ordering Indication Dosage Frequency Signature Comments Components Source Medication Medication Date Date Medication? Clinician (SIG) Name Name carvediloL Yes [id number] 12.5mg Take 2 Univers 6.25 mg 1-19 tablets by ity of tablet 00:00: mouth in [place] [address] the Medical morning Branch and 2 tablets in the evening. Take with meals. carvediloL 2023-0 Yes [id number] 12.5mg Take 2 Univers 6.25 mg 1-19 tablets by ity of tablet 00:00: mouth in [place] [address] the [facility] morning Branch and 2 tablets in the evening. Take with meals. carvediloL 2023-0 Yes [id number] 12.5mg Take 2 Univers 6.25 mg 1-19 tablets by ity of tablet 00:00: mouth in [place] [address] the [facility] morning Branch and 2 tablets in the evening. Take with meals. carvediloL 2023-0 Yes [id number] 12.5mg Take 2 Univers 6.25 mg 1-19 tablets by ity of tablet 00:00: mouth in [place] [address] the [facility] morning [place] and 2 tablets in the evening. Take with meals. carvediloL 2023-0 Yes [id number] 12.5mg Take 2 Univers 6.25 mg 1-19 tablets by ity of tablet 00:00: mouth in [place] [address] the [facility] morning [place] and 2 tablets in the evening. Take with meals. carvediloL 2023-0 Yes [id number] 12.5mg Take 2 Univers 6.25 mg 1-19 tablets by ity of tablet 00:00: mouth in [place] [address] the [facility] morning [place] and 2 tablets in the evening. Take with meals. ibuprofen 2023-0 Yes [id number] 600mg Take 1 U nivers 600 mg 1-13 tablet by ity of tablet 00:00: mouth [place] 00 every 8 Medical (eight) Branch hours as needed for Pain (scale 4-6) (take wit hfood). ibuprofen 2023-0 Yes [id number] 600mg Take 1 U nivers 600 mg 1-13 tablet by ity of tablet 00:00: mouth [place] 00 every 8 Medical (eight) Branch hours as needed for Pain (scale 4-6) (take wit hfood). ibuprofen 2023-0 Yes [id number] 600mg Take 1 U nivers 600 mg 1-13 tablet by ity of tablet 00:00: mouth [place] 00 every 8 Medical (eight) Branch hours as needed for Pain (scale 4-6) (take wit hfood). ibuprofen 2023-0 Yes [id number] 600mg Take 1 U nivers 600 mg 1-13 tablet by ity of tablet 00:00: mouth [place] every 8 Medical (eight) Branch hours as needed for Pain (scale 4-6) (take wit hfood). ibuprofen 2023-0 Yes [id number] 600mg Take 1 U nivers 600 mg 1-13 tablet by ity of tablet 00:00: mouth [place] every 8 Medical (eight) Branch hours as needed for Pain (scale 4-6) (take wit hfood). ibuprofen 2023-0 Yes [id number] 600mg Take 1 U nivers 600 mg 1-13 tablet by ity of tablet 00:00: mouth [place] every 8 Medical (eight) Branch hours as needed for Pain (scale 4-6) (take wit hfood). ibuprofen 3-0 Yes [id number] 600mg Take 1 U nivers 600 mg 1-13 tablet by ity of tablet 00:00: mouth [place] every 8 Medical (eight) Branch hours as needed for Pain (scale 4-6) (take wit hfood). diclofenac 3-0 Yes 50mg Take 50 mg U nivers 50 mg 1-11 by mouth 2 ity of tablet 00:00: (two) [place] 00 times Medical daily Branch after breakfast and dinner. diclofenac 2023-0 Yes 50mg Take 50 mg U nivers 50 mg 1-11 by mouth 2 ity of tablet 00:00: (two) [place] 00 times Medical daily Branch after breakfast and dinner. diclofenac 2023-0 Yes 50mg Take 50 mg U nivers 50 mg 1-11 by mouth 2 ity of tablet 00:00: (two) [place] 00 times Medical daily Branch after breakfast and dinner. diclofenac 2023-0 Yes 50mg Take 50 mg U nivers 50 mg 1-11 by mouth 2 ity of tablet 00:00: (two) [place] 00 times Medical daily Branch after breakfast and dinner. diclofenac 2023-0 Yes 50mg Take 50 mg U nivers 50 mg 1-11 by mouth 2 ity of tablet 00:00: (two) [place] [address] times Medical daily Branch after breakfast and dinner. ondansetron 2021-10 202- No [id number] 4mg Take 1 Univers 4 mg 0-26 11- tablet by ity of disintegrat 00:00: 04:59 [place] tablet 00 :00 every 8 Medica l (eight) Branch hours as needed for Nausea and Vomiting (N/V) for up to 5 days. ondansetron 2021-10- No [id number] 4mg Take 1 Univers 4 mg 0-26 11-01 tablet by ity of disintegrat 00:00: 04:59 [place] 00 :00 every 8 Medica l (eight) Branch hours as needed for Nausea and Vomiting (N/V) for up to 5 days. carvediloL 2021-0 Yes [id number] 12.5mg Take 2 Univers 6.25 mg 9-26 tablets by ity of tablet 00:00: mouth in [address] and 2 tablets in the evening. Take with meals. carvediloL 2021-0 Yes [id number] 12.5mg Take 2 Univers 6.25 mg 9-26 tablets by ity of tablet 00:00: mouth in [address] and 2 tablets in the evening. Take with meals. carvediloL 2021-0 Yes [id number] 12.5mg Take 2 Univers 6.25 mg 9-26 tablets by ity of tablet 00:00: mouth in [address] and 2 tablets in the evening. Take with meals. carvediloL 2021-0 Yes [id number] 12.5mg Take 2 Univers 6.25 mg 9-26 tablets by ity of tablet 00:00: mouth in [address] and 2 tablets in the evening. Take with meals. carvediloL 2021-0 Yes [id number] 12.5mg Take 2 Univers 6.25 mg 9-26 tablets by ity of tablet 00:00: mouth in [address] and 2 tablets in the evening. Take with meals. carvediloL 2021-0 Yes [id number] 12.5mg Take 2 Univers 6.25 mg 9-26 tablets by ity of tablet 00:00: mouth in [address] and 2 tablets in the evening. Take with meals. carvediloL 2021-0 Yes [id number] 12.5mg Take 2 Univers 6.25 mg 9-26 tablets by ity of tablet 00:00: mouth in [address] and 2 tablets in the evening. Take with meals. carvediloL 2021-0 Yes [id number] 12.5mg Take 2 Univers 6.25 mg 9-26 tablets by ity of tablet 00:00: mouth in [place] 00 the Medical morning Branch and 2 tablets in the evening. Take with meals. carvediloL 2021-0 Yes [id number] 12.5mg Take 2 Univers 6.25 mg 9-26 tablets by ity of tablet 00:00: mouth in [place] 00 the Medical morning Branch and 2 tablets in the evening. Take with meals. carvediloL 2021-0 3- No [id number] 12.5mg Take 2 Univers 6.25 mg 9-26 01-19 tablets by ity o f tablet 00:00: 00:00 mouth in [place] 00 :00 the Medical morning Branch and 2 tablets in the evening. Take with meals. carvediloL 2021-0 Yes [id number] 6.25mg Take 1 Univers 6.25 mg 8-30 tablet by ity of tablet 00:00: mouth in [place] 00 the Medical morning Branch and 1 tablet in the evening. Take with meals. lisinopriL 2021-0 Yes [id number] 10mg Take 1 U nivers 10 mg 8-30 tablet by ity of tablet 00:00: mouth at [place] [address] bedtime. Medical Branch lisinopriL 2021-0 Yes [id number] 10mg Take 1 U nivers 10 mg 8-30 tablet by ity of tablet 00:00: mouth at [place] [address] bedtime. Medical Branch lisinopriL 2021-0 Yes [id number] 10mg Take 1 U nivers 10 mg 8-30 tablet by ity of tablet 00:00: mouth at [place] [address] bedtime. Medical Branch lisinopriL 2021-0 Yes [id number] 10mg Take 1 U nivers 10 mg 8-30 tablet by ity of tablet 00:00: mouth at [place] [address] bedtime. Medical Branch lisinopriL 2021-0 Yes [id number] 10mg Take 1 U nivers 10 mg 8-30 tablet by ity of tablet 00:00: mouth at [place] [address] bedtime. Medical Branch lisinopriL 2021-0 Yes [id number] 10mg Take 1 U nivers 10 mg 8-30 tablet by ity of tablet 00:00: mouth at [place] [address] bedtime. Medical Branch lisinopriL 2021-0 Yes [id number] 10mg Take 1 U nivers 10 mg 8-30 tablet by ity of tablet 00:00: mouth at [place] [address] bedtime. Medical Branch lisinopriL 0 Yes [id number] 10mg Take 1 U nivers 10 mg 8-30 tablet by ity of tablet 00:00: mouth at [place] [address] bedtime. Medical Branch lisinopriL 0 Yes [id number] 10mg Take 1 U nivers 10 mg 8-30 tablet by ity of tablet 00:00: mouth at [place] [address] bedtime. Medical Branch lisinopriL 0 Yes [id number] 10mg Take 1 U nivers 10 mg 8-30 tablet by ity of tablet 00:00: mouth at [place] [address] bedtime. Medical Branch lisinopriL 0 Yes [id number] 10mg Take 1 U nivers 10 mg 8-30 tablet by ity of tablet 00:00: mouth at [place] [address] bedtime. Medical Branch lisinopriL 0 Yes [id number] 10mg Take 1 U nivers 10 mg 8-30 tablet by ity of tablet 00:00: mouth at [place] [address] bedtime. Medical Branch lisinopriL 0 Yes [id number] 10mg Take 1 U nivers 10 mg 8-30 tablet by ity of tablet 00:00: mouth at [place] [address] bedtime. Medical Branch lisinopriL 0 Yes [id number] 10mg Take 1 U nivers 10 mg 8-30 tablet by ity of tablet 00:00: mouth at [place] [address] bedtime. Medical Branch lisinopriL 0 Yes [id number] 10mg Take 1 U nivers 10 mg 8-30 tablet by ity of tablet 00:00: mouth at [place] [address] bedtime. Medical Branch lisinopriL 0 Yes [id number] 10mg Take 1 U nivers 10 mg 8-30 tablet by ity of tablet 00:00: mouth at [place] [address] bedtime. Medical Branch lisinopriL 0 Yes [id number] 10mg Take 1 U nivers 10 mg 8-30 tablet by ity of tablet 00:00: mouth at [place] [address] bedtime. Medical Branch carvediloL 2021- No [id number] 6.25mg Take 1 Univers 6.25 mg 8-30 - tablet by ity of tablet 00:00: 00:00 mouth in [place] 00 :00 the Medical morning Branch and 1 tablet in the evening. Take with meals. amoxicillin 2022-0 Yes 1{tbl} Take 1 Un [...] and 1 tablet in the evening. amoxicillin Yes 1{tbl} Take 1 Un galen -clavulanat [...] and 1 tablet in the evening. amoxicillin 0 Yes 1{tbl} Take 1 Un galen -clavulanat 8-25 tablet by ity of e 875-125 00:00: [place] 00 the Medical tablet morning Branch and 1 tablet in the evening. amoxicillin 2022- No 1{tbl} Take 1 U nivers -clavulanat 8-25 02-06 tablet by it y of e 875-125 00:00: 00:00 mouth in [place] mg per 00 :00 the Medical tablet morning Branch and 1 tablet in the evening. amoxicillin 2022- No 1{tbl} Take 1 U nivers -clavulanat 8-25 02-06 tablet by it y of e 875-125 00:00: 00:00 mouth in [place] mg per 00 :00 the Medical tablet morning Branch and 1 tablet in the evening. lisinopriL 2021- No [id number] 10mg Take 1 Univers 10 mg 8-16 08-30 tablet by ity of tablet 00:00: 00:00 mouth at [place] 00 :00 bedtime Medical for 15 Branch days. lisinopriL 2021- No [id number] 10mg Take 1 Univers 10 mg 8-16 08-30 tablet by ity of tablet 00:00: 00:00 mouth at [place] 00 :00 bedtime Medical for 15 Branch days. naproxen 2021-0 Yes [id number] 500mg Take 1 Univers 500 mg 7-06 tablet by ity of tablet 00:00: mouth [place] 00 every 8 Medical (eight) Branch hours as needed for Pain (scale 4-6). naproxen 2021-0 Yes [id number] 500mg Take 1 Univers 500 mg 7-07 9106 tablet by ity of tablet 00:00: mouth [place] 00 every 8 Medical (eight) Branch hours as needed for Pain (scale 4-6). naproxen 2-0 Yes [id number] 500mg Take 1 Univers 500 mg 7-07 9106 tablet by ity of tablet 00:00: mouth [place] 00 every 8 Medical (eight) Branch hours as needed for Pain (scale 4-6). naproxen 2-0 Yes [id number] 500mg Take 1 Univers 500 mg 7-07 9106 tablet by ity of tablet 00:00: mouth [place] 00 every 8 Medical (eight) Branch hours as needed for Pain (scale 4-6). naproxen 2-0 Yes [id number] 500mg Take 1 Univers 500 mg 7-07 9106 tablet by ity of tablet 00:00: mouth [place] 00 every 8 Medical (eight) Branch hours as needed for Pain (scale 4-6). naproxen 2021-0 Yes [id number] 500mg Take 1 Univers 500 mg 7-07 9106 tablet by ity of tablet 00:00: mouth [place] 00 every 8 Medical (eight) Branch hours as needed for Pain (scale 4-6). naproxen 2021-0 Yes [id number] 500mg Take 1 Univers 500 mg 7-07 9106 tablet by ity of tablet 00:00: mouth [place] 00 every 8 Medical (eight) Branch hours as needed for Pain (scale 4-6). naproxen 2-0 Yes [id number] 500mg Take 1 Univers 500 mg 7-07 9106 tablet by ity of tablet 00:00: mouth [place] 00 every 8 Medical (eight) Branch hours as needed for Pain (scale 4-6). naproxen 2-0 Yes [id number] 500mg Take 1 Univers 500 mg 7-07 9106 tablet by ity of tablet 00:00: mouth [place] 00 every 8 Medical (eight) Branch hours as needed for Pain (scale 4-6). naproxen 2022-0 Yes [id number] 500mg Take 1 Univers 500 mg 7-07 9106 tablet by ity of tablet 00:00: mouth [place] 00 every 8 Medical (eight) Branch hours as needed for Pain (scale 4-6). naproxen 2022-0 Yes [id number] 500mg Take 1 Univers 500 mg 7-07 9106 tablet by ity of tablet 00:00: mouth [place] 00 every 8 Medical (eight) Branch hours as needed for Pain (scale 4-6). naproxen 2021-0 Yes [id number] 500mg Take 1 Univers 500 mg 7-07 9106 tablet by ity of tablet 00:00: mouth [place] 00 every 8 Medical (eight) Branch hours as needed for Pain (scale 4-6). naproxen 2021-0 Yes [id number] 500mg Take 1 Univers 500 mg 7-07 9106 tablet by ity of tablet 00:00: mouth [place] 00 every 8 Medical (eight) Branch hours as needed for Pain (scale 4-6). naproxen 2021-0 Yes [id number] 500mg Take 1 Univers 500 mg 7-07 9106 tablet by ity of tablet 00:00: mouth [place] 00 every 8 Medical (eight) Branch hours as needed for Pain (scale 4-6). naproxen 2021-0 Yes [id number] 500mg Take 1 Univers 500 mg 7-07 9106 tablet by ity of tablet 00:00: mouth [place] 00 every 8 Medical (eight) Branch hours as needed for Pain (scale 4-6). naproxen 2021-0 Yes [id number] 500mg Take 1 Univers 500 mg 7-07 9106 tablet by ity of tablet 00:00: mouth [place] 00 every 8 Medical (eight) Branch hours as needed for Pain (scale 4-6). naproxen 2021-0 Yes [id number] 500mg Take 1 Univers 500 mg 7-07 9106 tablet by ity of tablet 00:00: mouth [place] 00 every 8 Medical (eight) Branch hours as needed for Pain (scale 4-6). Immunizations Ordered Filled Immunization Date Status Comments [facility] e Immunization Name Name Influenza Virus 2022-11-25 Completed Universit y of Vaccine Quad IM, 00:00:00 [place] Me dical Preserv and ABX Branch Free 6 MO-64 YRS Influenza Virus 2022-11-25 Completed Universit y of Vaccine [place] IM, 00:00:00 [place] Me dical Preserv and ABX Branch Free 6 MO-64 YRS Influenza Virus 2022-11-25 Completed Universit y of Vaccine [place] IM, 00:00:00 [place] Me dical Preserv and ABX Branch Free 6 MO-64 YRS Influenza Virus 2022-11-25 Completed Universit y of Vaccine [place] IM, 00:00:00 [facility] dical Preserv and ABX Branch Free 6 MO-64 YRS Vital Signs Vital Name Observation Time Observation Value Comments Source Systolic blood 2022-11-25 14:55:00 132 mm[Hg] Univer sity of pressure [facility] Diastolic blood 2022-11-25 14:55:00 76 mm[Hg] Unive rsity of pressure [facility] Heart rate 2022-11-25 14:54:00 76 /min Universi ty of [place] Medical Branch Body height 2022-11-25 14:54:00 180.3 cm Universi ty of [place] [facility] [place] Body weight 2022-11-25 14:54:00 131.679 kg Universi ty of [place] Medical Branch BMI 2022-11-25 14:54:00 40.49 kg/m2 Universi ty of [facility] Oxygen saturation in 2022-11-25 14:54:00 96 /min University of Arterial blood by [place] damien Pulse oximetry Branch Systolic blood 2022-11-01 18:13:00 150 mm[Hg] Univer sity of pressure [place] Medical [place] Diastolic blood 2022-11-01 18:13:00 92 mm[Hg] Unive rsity of [facility] Heart rate 2022-11-01 18:13:00 80 /min Universi ty of [place] [facility] [place] Respiratory rate 2022-11-01 18:13:00 16 /min Univ ersity of [facility] Oxygen saturation in 2022-11-01 18:13:00 98 /min University of Arterial blood by [place] damien Pulse oximetry Branch Body temperature 2022-11-01 16:37:00 37.11 Delia Univ ersity of [place] Medical Branch Body height 2022-11-01 16:37:00 180.3 cm Universi ty of [place] [facility] Body weight 2022-11-01 16:37:00 127.007 kg Universi ty of [place] [facility] BMI 2022-11-01 16:37:00 39.05 kg/m2 Universi ty of [place] [facility] Systolic blood 2022-11-01 15:41:00 159 mm[Hg] Univer sity of pressure [place] [facility] Diastolic blood 2022-11-01 15:41:00 109 mm[Hg] Unive rsity of pressure [place] [facility] Heart rate 2022-11-01 15:41:00 87 /min Universi ty of [place] [facility] Body temperature 2022-11-01 15:41:00 36.83 Delia Univ ersity of [place] [facility] Respiratory rate 2022-11-01 15:41:00 18 /min Univ ersity of [place] [facility] Body height 2022-11-01 15:41:00 180.3 cm Universi ty of [place] [facility] Body weight 2022-11-01 15:41:00 135.257 kg Universi ty of [place] [facility] BMI 2022-11-01 15:41:00 41.59 kg/m2 Universi ty of [place] [facility] Oxygen saturation in 2022-11-01 15:41:00 98 /min University of Arterial blood by [place] damien Pulse oximetry Branch Systolic blood 2022-08-14 16:37:00 139 mm[Hg] Univer sity of pressure [place] [facility] Diastolic blood 2022-08-14 16:37:00 94 mm[Hg] Unive rsity of pressure [place] [facility] Heart rate 2022-08-14 16:37:00 86 /min Universi ty of [place] [facility] Body temperature 2022-08-14 16:37:00 37.17 Delia Univ ersity of [place] [facility] Respiratory rate 2022-08-14 16:37:00 18 /min Univ ersity of [place] [facility] Body height 2022-08-14 16:37:00 177.8 cm Universi ty of [place] [facility] Body weight 2022-08-14 16:37:00 127.914 kg Universi ty of [place] [facility] BMI 2022-08-14 16:37:00 40.46 kg/m2 Universi ty of [place] [facility] Oxygen saturation in 2022-08-14 16:37:00 99 /min University of Arterial blood by [place] damien Pulse oximetry Branch Systolic blood 2022-06-18 19:40:00 151 mm[Hg] Univer sity of pressure [place] [facility] Diastolic blood 2022-06-18 19:40:00 101 mm[Hg] Unive rsity of pressure [place] [facility] Heart rate 2022-06-18 19:40:00 100 /min Universi ty of [place] [facility] Body temperature 2022-06-18 19:39:00 36.72 Delia [facility] Respiratory rate 2022-06-18 19:39:00 18 /min [facility] Body height 2022-06-18 19:39:00 177.8 cm [facility] Body weight 2022-06-18 19:39:00 126.1 kg [facility] BMI 2022-06-18 19:39:00 39.89 kg/m2 [facility] Oxygen saturation in 2022-06-18 19:39:00 97 /min [facility] Arterial blood by [facility] Pulse oximetry Branch Procedures Procedure Date / Time Performed Performing Clinician Sourc e FLU VACC (), 2022-11-25 15:25:36 Rowena Vance [facility] 6 MO-64 YRS, .5ML, Medical Branc h IM, QUAD (FLUCELVAX) CT CERVICAL SPINE WO 2022-11-01 17:22:15 Adalid Friedman [facility] CONTRAST [facility] CT HEAD WO CONTRAST 2022-11-01 17:22:15 Adalid Friedman [facility] XR HAND <3 VW RIGHT 2022-11-01 17:13:53 Adalid Friedman [facility] CONSENT/REFUSAL FOR 2022-11-01 16:27:51 [facility], [facility] Name Medical Branch TREATMENT POCT MOLECULAR FLU 2022-08-14 16:58:00 Unknown, Attending [facility] POCT MOLECULAR STREP 2022-08-14 16:43:00 Unknown, Attending [facility] SLEEP STUDY DATA 2022-07-18 05:01:00 Doctor Unassigned, No [facility] REPORT Name Medical [place] Encounters Start End Encounter Admission Attending Care Care Encounter Source Date/Time Date/Time Type Type Clinicians Facility Department ID 2022-12-26 2022-12-26 Outpatient [place] RAJPUT SCHAM SCHAM [id number] [facility] 11:20:00 11:20:00 DEANNE aviles [facility] 2022-11-26 2022-11-26 Telephone Rajiv SCHAM [id number] Univers 00:00:00 00:00:00 [facility] [id number] it y of [place] 4.2.7.2.686 [place]?BLEA [id number] [address] OFFICE [facility] 2022-11-25 2022-11-25 [facility] [id number] Univers 09:56:07 23:59:00 ROWENA valente [facility] 2022-11-25 2022-11-25 [facility] [id number] Univers 09:00:00 09:12:10 Visit [facility] [id number] it y [facility] [id number] [place]?BLEA [id number] [address] OFFICE [facility] 2022-11-25 2022-11-25 Letter [facility] [id number] Univers 00:00:00 00:00:00 (Out) [facility] [id number] it y [facility] [id number] [place]?BLEA [id number] [address] 2022-11-13 2022-11-13 Outpatient [facility] [id number] Univers 13:15:00 13:15:00 [facility] 2022-11-07 2022-11-07 [facility] [id number] Univers 00:00:00 00:00:00 Deanne [place] [id number] ity of [place] 4[place]2.7.2.686 [place] [id number] [facility] 059 [facility] 2022-11-01 2022-11-01 Emergency [facility] ERT [id number] Univers 10:38:00 13:03:00 ADALID [facility] 2022-11-01 2022-11-01 Emergency [facility] [id number] Univers 10:38:00 13:03:00 Adalid CLOUD 350.1.13.10 i [place] of [place].2.[place] [phone] [address] 2022-11-01 2022-11-01 Urgent uJlia Mckeon [facility] 1.2.840.114 [id number] Univers 09:20:00 09:40:00 Care Unknown, Attending HEALTH 350.1.13.10 ity of [place] 4.2.7.2.686 Giovani as [place]?BLEA [phone] [address] MEDICAL OFFICE [facility] 2022-11-01 2022-11-01 Outpatient R JORGE LUIS III, [facility] [id number] Univers 09:20:00 09:20:00 JULIA freedom [facility] 2022-08-14 2022-08-14 [facility] [id number] Univers 14:40:00 14:40:00 DEANNE valente o f [facility] 2022-08-14 2022-08-14 Urgent ChandramaddyLyndon bayamrita [facility] 1.2.840.114 [id number] Univers 11:40:00 12:00:00 Care Unknown, Attending HEALTH 350.1.13.10 ity of [place] 4.2.7.2.686 Giovani as [place]?BLEA [phone] [address] OFFICE [facility] 2022-08-14 2022-08-14 Outpatient R SINGH [facility] [id number] Univers 11:40:00 11:40:00 CHEPE [facility] 2022-08-14 2022-08-14 Letter [facility] 1.2.840.114 [id number] Univers 00:00:00 00:00:00 (Out) Chepe HEALTH 350.1.13.10 it y of [place] 4.2.7.2.686 Giovani as [place]?BLEA [phone] [address] OFFICE [facility] 2022-07-30 2022-07-30 Outpatient [facility] [id number] Univers 09:20:00 09:20:00 DEANNE valente o f [facility] 2022-07-25 2022-07-25 Telephone [facility], [facility] [id number] Univers 00:00:00 00:00:00 Deanne CLOUD 350.1.13.10 [place] [phone] Pa dical NAL 9 [facility] 2022-07-19 2022-07-19 Telephone [facility], [facility] [id number] Univers 00:00:00 00:00:00 Deanne CLOUD 350.1.13.10 it[place] of [place] [phone] Pa dical NAL [address] [place] [address] 2022-07-18 2022-07-18 Sealing Machine Operator Brady [facility] 1.2 .840.114 [id number] Univers 08:30:00 08:45:00 Visit Debbie Bird 350.1.13. 10 it[place] of [place] [id number] [facility] [address] 2022-07-18 2022-07-18 Outpatient R DEBBIE BIRD [facility] [id number] Univers 08:30:00 08:30:00 DEBBIE BIRD itfreedom [facility] 2022-07-18 2022-07-18 Outpatient R DEBBIE BIRD [facility] [id number] Univers 08:30:00 08:30:00 DEBBIE BIRD itfreedom [facility] 2022-07-18 2022-07-18 Letter Doctor JEFFREY 1.2.840.114 [id number] Univers 00:00:00 00:00:00 (Out) Unassigned, JASS 350.1.13.10 ity of [facility] 4.2.7.2.686 Giovani as [phone] [facility] [address] 2022-07-18 2022-07-18 Orders Doctor JEFFREY 1.2.840.114 [id number] Univers 00:00:00 00:00:00 Only Unassigned, JASS 350.1.13.10 [facility] 4.2.7.2.686 Giovani as [phone] [facility] [address] 2022-07-01 2022-07-01 Outpatient R REGULO, [facility] [id number] Univers 07:58:22 23:59:00 DEANNE rm [facility] 2022-07-01 2022-07-01 Outpatient R REGULO, [facility] [id number] Univers 08:00:00 08:00:00 DEANNE valente [facility] 2022-06-18 2022-06-18 Outpatient R REGULO, [facility] [id number] Univers 14:20:00 15:03:01 [facility] amb[facility]io [facility] 2022-06-18 2022-06-18 Office Regulo, [facility] 1.2.840.114 [id number] Univers 14:20:00 15:03:01 Visit NadiyaFormerly [facility] 350.1.13.10 ity [facility] 4.2.7.2.686 [place] [facility] [phone] Pa dical NAL [address] [facility] 2022-06-18 2022-06-18 Outpatient R REGULO, [facility] [id number] Univers 14:20:00 15:03:01 [facility] amb[facility]io [facility] 2022-06-04 2022-06-04 Emergency Smith, [facility] 1.2.840.114 [id number] Univers 10:15:00 14:21:00 Rafaela CLOUD 350.1.13.10 i [place] [phone] [facility] [address] 2022-06-04 2022-06-04 Emergency X SMITH, [facility] ERT [id number] Univers 10:15:00 14:21:00 RAFAELA richfreedom [facility] 2022-06-04 2022-06-04 Telephone [facility] [id number] Univers 00:00:00 00:00:00 [facility] 350.1.13.10 it y of [place] 4.2.7.2.686 Giovani as [place]?BLEA [phone] Pa wendy OLSEN [address] [facility] OFFICE [facility] 2022-05-14 2022-05-14 Telephone [facility] [id number] Univers 00:00:00 00:00:00 [facility] 350.1.13.10 it y of [place] 4.2.7.2.686 Giovani as [place]?BLEA [phone] [address] 2022-05-09 2022-05-09 Outpatient [facility] [id number] Univers 08:01:34 23:59:00 ROWENA freedom [facility] 2022-05-09 2022-05-09 [facility] 1.2.840.114 [id number] Univers 08:00:00 23:59:00 Encounter Rowena CLOUD 350.1.13.10 ity of [place]7.2.686 [place] [facility] [phone] [facility] [address] [place] [address] 2022-05-01 2022-05-01 Sealing Machine Operator Lab, Ang - Db [facility] 1.2.840.1 [id number] Univers 14:00:00 14:14:36 Visit Rowena Vance [facility] 350.1.13.10 ity of [place] 4.2.7.2.686 Giovani as [place]?BLEA [id number] [address] 2022-05-01 2022-05-01 Outpatient Tennille VANCE [facility] [id number] Univers 14:00:00 14:00:00 ROWENA valente [facility] 2022-05-01 2022-05-01 Sealing Machine Operator Lab, Ang - Db [facility] 1.2.840.1 14 [id number] Univers 08:30:00 08:45:00 Visit Rowena Vance [facility] 350.1.13.10 ity of [place] 4.2.7.2.686 Giovani as [place]?BLEA [phone] [address] 2022-05-01 2022-05-01 Outpatient Tennille [facility] [id number] Univers 08:00:00 08:39:33 ROWENA valente [facility] 2022-05-01 2022-05-01 Office [facility] 1.2.840.114 [id number] Univers 08:00:00 08:30:00 Visit Rowena [facility] 350.1.13.10 it y of [place] 4.2.7.2.686 Giovani as [place]?BLEA [id number] [address] OFFICE [facility] 2022-05-01 2022-05-01 Outpatient R [facility] [id number] Univers 08:00:00 08:00:00 ROWENA freedom [facility] 2022-04-25 2022-04-25 Urgent [facility] 1.2.840.114 [id number] Univers 11:40:00 12:00:00 Care Kayce [facility] 350.1.13.10 ity lynne [place] 4.2.7.2.686 Giovani as [place]?BLEA [id number] [address] OFFICE [facility] 2022-04-25 2022-04-25 Outpatient R [facility] [id number] Univers 11:40:00 11:40:00 KAYCE valente o f [facility] Results Test Description Test Time Test Comments Results Result Comments Source POCT MOLECULAR FLU 2022-08-14 17:09:53 Test Item Value Reference Range Interpretation Comme nts POCT Molecular FluA (test code = 23840-5) Negative Negative POCT Molecular FluB (test code = 09113-7) Negative Negative Lab Interpretation (test code = 15910-5) Normal [id number] 16:50:41 Test Item Value Reference Range Interpretation Comments POCT Molecular Strep (test code = Negative Negative 30225-9) Lab Interpretation (test code = Normal 29655-4) [facility]
[2022-11-29] MEDS ORDERED: KETOROLAC 30 MG/ML INJ ONE (08:16)
[2022-11-29] MEDS ORDERED: dexAMETHasone 10 MG/ML VIAL ONE (08:16)
[2022-11-29] MEDS ORDERED: NA CHLORIDE 0.9% 1,000 ML ONE (08:16)
[2022-11-29 08:40] LABS: Absolute Lymphocytes (CBC) 0.5 K/uL (0.7-4.9); Hematocrit 45.3 % (39.6-49.0); Lymphocytes % 4.6 % (15.3-44.8); MCV 91.4 fL (80-100); MPV 8.5 fL (7.6-11.3); RBC Red Blood Cell Count 4.95 M/uL (4.33-5.43)
[2022-11-29 08:48] LABS: Albumin 3.9 g/dL (3.4-5.0); Bilirubin Total 0.7 mg/dL (0.2-1.0); Potassium 3.7 mmol/L (3.5-5.1); Protein, Total 7.8 g/dL (6.4-8.2)
--- NOTE | 2022-11-29 08:51 | RAD REPORT ---
EXAM DESCRIPTION: CT - Soft Tissue Neck W/Contr - 11/29/2022 8:41 am CLINICAL HISTORY: Neck pain with sore throat. Peritonsillar abscess COMPARISON: None. TECHNIQUE: Computed axial tomography of the neck was obtained. 94 cc Isovue 300 was administered in travenously. Coronal and sagittal reconstruction was performed. All CT scans are performed using dose optimization technique as appropriate and may include automated exposure control or mA/KV adjustment according to patient size. FINDINGS: The right and left tonsils are enlarged. The parapharyngeal fat is clear. Tonsillar abscess not visualized The pharynx, tongue base, larynx and subglottic trachea appear unremarkable The parotid, submandibular and thyroid glands appear unremarkable. Small bilateral neck lymph nodes probably reactive nature No fluid within the sinuses/mastoids. Mucous retention cyst left maxillary sinus IMPRESSION: Enlarged tonsils probably indicating a tonsillitis. No peritonsillar abscess
--- NOTE | 2022-11-29 09:19 | ER ---
Nurse's Notes [facility] Name: Pramod Cornelius Age: 27 yrs Sex: Male : 1995 Arrival Date: 11/29/2022 Time: 07:46 Bed 7 Private MD: Diagnosis: Streptococcal tonsillitis Presentation: 11/29 07:51 Chief complaint: Patient states: was diagnosed with strep on Friday, had a Bicillin iw shot , throat still hurts and still running fever , can only tolerate fluids. Coronavirus screen: Client presents with at least one sign or symptom that may indicate coronavirus-19. Ebola Screen: Patient negative for fever greater than or equal to 101.5 degrees Fahrenheit, and additional compatible Ebola Virus Disease symptoms Patient denies exposure to infectious person. Patient denies travel to an Ebola-affected area in the 21 days before illness onset. No symptoms or risks identified at this time. Initial Sepsis Screen: Does the patient meet any 2 criteria? No. Patient's initial sepsis screen is negative. Does the patient have a suspected source of infection? No. Patient's initial sepsis screen is negative. Risk Assessment: Do you want to hurt yourself or someone else? Patient reports no desire to harm self or others. Onset of symptoms was November 27, 2022. 07:51 Method Of Arrival: Ambulatory iw 07:51 Acuity: MAXIMILIAN 3 iw Historical: - Allergies: 07:52 Codeine; iw - Home Meds: 07:52 carvedilol 12.5 mg oral tab every 6 hours [Active]; iw - PMHx: 07:52 Hypertension; SVT; iw - PSHx: 07:52 cardiac ablation; iw - Immunization history:: Adult Immunizations Client reports receiving the 2nd dose of the Covid vaccine. - Social history:: Smoking status: Reported history of juuling and/or vaping. - Family history:: not pertinent. Screenin:29 [facility] ED Fall Risk Assessment (Adult) Score/Fall Risk Level 0 - 2 = Low Risk hb Oriented to surroundings, Maintained a safe environment, Educated pt \T\ family on fall prevention, incl call for assistance when getting out of bed. Abuse screen: Denies threats or abuse. Denies injuries from another. Nutritional screening: No deficits noted. Tuberculosis screening: No symptoms or risk factors identified. Assessment: 08:28 General: Appears in no apparent distress. uncomfortable, Behavior is calm, cooperative. hb Pain: Pain currently is 10 out of 10 on a pain scale. Neuro: Level of Consciousness is awake, alert, obeys commands, Oriented to person, place, time, situation. Cardiovascular: Patient's skin is warm and dry. Respiratory: Respiratory effort is even, unlabored, Respiratory pattern is regular, symmetrical. GI: No signs and/or symptoms were reported involving the gastrointestinal system. : No signs and/or symptoms were reported regarding the genitourinary system. EENT: Reports severe sore throat. Derm: Skin is pink, warm \T\ dry. Musculoskeletal: No signs and/or symptoms reported regarding the musculoskeletal system. 08:35 Reassessment: Pt to CT. hb 08:43 Reassessment: Pt returned from CT via stretcher. Family remains at bedside. hb 09:54 Reassessment: Patient appears in no apparent distress at this time. Patient and/or hb family updated on plan of care and expected duration. Pain level reassessed. Patient is alert, oriented x 3, equal unlabored respirations, skin warm/dry/pink. Vital Signs: 07:51 BP 134 / 96; Pulse 130; Resp 18; Temp 100.4; Pulse Ox 97% on R/A; Weight 131.54 kg; iw Height 5 ft. 11 in. (180.34 cm); Pain 10/10; 09:17 BP 115 / 83; Pulse 91; Resp 15; Pulse Ox 99% on R/A; hb 09:54 BP 114 / 80; Pulse 82; Resp 16; Pulse Ox 99% on R/A; Pain 6/10; hb 07:51 Body Mass Index 40.45 (131.54 kg, 180.34 cm) iw ED Course: 07:46 Patient arrived in ED. rg4 07:52 Triage completed. iw 07:53 Arm band placed on. iw 07:54 Juve Willis MD is Attending Physician. rt 08:26 Inserted saline lock: 20 gauge in right antecubital area, using aseptic technique. hb Blood collected. 08:27 Paula Saavedra, MEG is Primary Nurse. hb 08:27 Lactate w/ 2H reflex if indic. Sent. hb 08:27 CMP Sent. hb 08:27 CBC with Diff Sent. hb 08:29 Patient has correct armband on for positive identification. hb 08:43 Soft Tissue Neck W/Contr In Process Unspecified. EDMS 09:54 No provider procedures requiring assistance completed. IV discontinued, intact, hb bleeding controlled, No redness/swelling at site. Administered Medications: 08:27 Drug: NS 0.9% 1000 ml Route: IV; Rate: bolus; Site: right antecubital; hb 08:27 Drug: Ketorolac 15 mg Route: IVP; Site: right antecubital; hb 08:27 Drug: Decadron - Dexamethasone 10 mg Route: IVP; Site: right antecubital; hb Medication: 08:29 VIS not applicable for this client. hb Outcome: 09:18 Discharge ordered by . rt 09:54 Discharged to home ambulatory, with family. hb 09:54 Condition: stable 09:54 Discharge instructions given to patient, Instructed on discharge instructions, follow up and referral plans. medication usage, Demonstrated understanding of instructions, follow-up care, medications, Prescriptions given X 1. 09:54 Patient left the ED. hb Signatures: Dispatcher [employer] Virgie Gandara RN RN Paula Saavedra RN RN hb Garcia, Rubi rg4 Juve Willis MD MD rt
--- NOTE | 2022-11-29 09:19 | EDPHYS ---
Physician Documentation [facility] Name: Pramod Cornelius Age: 27 yrs Sex: Male : 1995 Arrival Date: 11/29/2022 Time: 07:46 Bed 7 Private MD: ED Physician Juve Willis HPI: 11/29 08:13 This 27 yrs old Male presents to ER via Ambulatory with complaints of Fever, rt Cough, Sore Throat. 08:13 Patient presents to the ED with persistence of a sore throat. This started on rt Friday, he was diagnosed with strep pharyngitis, given a shot of Bicillin. Patient states that yesterday, he improved, however, today he had worsening fever, sore throat. He is able to tolerate liquids, or, he has pain with eating. He says the pain radiates through the right ear. Reports body aches, chills. He took 1 g of Tylenol and 400 mg of ibuprofen about 1 hour ago. He denies other acute complaints at this time. Symptoms are moderate severity, no other aggravating or alleviating factors.. Historical: - Allergies: 07:52 Codeine; iw - Home Meds: 07:52 carvedilol 12.5 mg oral tab every 6 hours [Active]; iw - PMHx: 07:52 Hypertension; SVT; iw - PSHx: 07:52 cardiac ablation; iw - Immunization history:: Adult Immunizations Client reports receiving the 2nd dose of the Covid vaccine. - Social history:: Smoking status: Reported history of juuling and/or vaping. - Family history:: not pertinent. ROS: 08:13 Eyes: Negative for injury, pain, redness, and discharge, Cardiovascular: Negative for rt chest pain, palpitations, and edema, Abdomen/GI: Negative for abdominal pain, nausea, vomiting, diarrhea, and constipation, MS/Extremity: Negative for injury and deformity, Skin: Negative for injury, rash, and discoloration, Neuro: Negative for headache, weakness, numbness, tingling, and seizure, Psych: Negative for depression, anxiety, suicide ideation, homicidal ideation, and hallucinations. 08:13 Constitutional: Positive for body aches, fever. 08:13 ENT: Positive for ear pain, sore throat. 08:13 Respiratory: Positive for cough, Negative for shortness of breath. Exam: 08:13 Constitutional: This is a well developed, well nourished patient who is awake, alert, rt and in no acute distress. Head/Face: Normocephalic, atraumatic. Chest/axilla: Normal chest wall appearance and motion. Nontender with no deformity. No lesions are appreciated. Cardiovascular: Regular rate and rhythm with a normal S1 and S2. No gallops, murmurs, or rubs. Normal PMI, no JVD. No pulse deficits. Respiratory: Lungs have equal breath sounds bilaterally, clear to auscultation and percussion. No rales, rhonchi or wheezes noted. No increased work of breathing, no retractions or nasal flaring. Abdomen/GI: Soft, non-tender, with normal bowel sounds. No distension or tympany. No guarding or rebound. No evidence of tenderness throughout. Skin: Warm, dry with normal turgor. Normal color with no rashes, no lesions, and no evidence of cellulitis. MS/ Extremity: Pulses equal, no cyanosis. Neurovascular intact. Full, normal range of motion. Neuro: Awake and alert, GCS 15, oriented to person, place, time, and situation. Cranial nerves II-XII grossly intact. Motor strength 5/5 in all extremities. Sensory grossly intact. Cerebellar exam normal. Normal gait. Psych: Awake, alert, with orientation to person, place and time. Behavior, mood, and affect are within normal limits. 08:13 ENT: 2+ tonsils with exudates, somewhat larger on the right compared to the left, uvula is midline, posterior pharyngeal erythema. Bilateral TM effusions. External auditory canals are within normal limits. 08:13 Neck: Lymph nodes: lymphadenopathy is appreciated, submandibular nodes. Vital Signs: 07:51 BP 134 / 96; Pulse 130; Resp 18; Temp 100.4; Pulse Ox 97% on R/A; Weight 131.54 kg; iw Height 5 ft. 11 in. (180.34 cm); Pain 10/10; 09:17 BP 115 / 83; Pulse 91; Resp 15; Pulse Ox 99% on R/A; hb 09:54 BP 114 / 80; Pulse 82; Resp 16; Pulse Ox 99% on R/A; Pain 6/10; hb 07:51 Body Mass Index 40.45 (131.54 kg, 180.34 cm) iw MDM: 07:58 Patient medically screened. rt 09:22 Differential diagnosis: Retropharyngeal abscess, peritonsillar abscess, pharyngitis, rt tonsillitis. Data reviewed: vital signs, lab test result(s), radiologic studies. I considered the following discharge prescriptions or medication management in the emergency department Medications were administered in the Emergency Department. See MAR. Counseling: I had a detailed discussion with the patient and/or guardian regarding: the historical points, exam findings, and any diagnostic results supporting the discharge/admit diagnosis, lab results, radiology results, the need for outpatient follow up. Response to treatment: the patient's symptoms have markedly improved after treatment, Tachycardia resolved with IV fluids, no evidence of sepsis.. 11/29 08:08 Order name: CBC with Diff; Complete Time: 08:54 rt 11/29 08:08 Order name: CMP; Complete Time: 08:54 rt 11/29 08:08 Order name: Lactate w/ 2H reflex if indic.; Complete Time: 08:54 rt 11/29 08:10 Order name: CT Neck Angio rt 11/29 08:13 Order name: Soft Tissue Neck W/Contr; Complete Time: 08:54 EDMS Administered Medications: 08:27 Drug: NS 0.9% 1000 ml Route: IV; Rate: bolus; Site: right antecubital; hb 08:27 Drug: Ketorolac 15 mg Route: IVP; Site: right antecubital; hb 08:27 Drug: Decadron - Dexamethasone 10 mg Route: IVP; Site: right antecubital; hb Disposition Summary: 11/29/22 09:18 Discharge Ordered Location: Home rt Problem: new rt Symptoms: have improved rt Condition: Stable rt Diagnosis - Streptococcal tonsillitis rt Followup: rt - With: Private Physician - When: 2 - 3 days - Reason: Discharge Instructions: - Discharge Summary Sheet rt - Tonsillitis rt Forms: - Medication Reconciliation Form rt - Thank You Letter rt - Work release form eb - Antibiotic Education rt - Prescription Opioid Use rt Prescriptions: - Augmentin 875-125 mg Oral Tablet - take 1 tablet by ORAL route every 12 hours for 10 days; 20 tablet; Refills: 0, rt Product Selection Permitted Signatures: Dispatcher [employer] Virgie Gandara RN RN Paula Vega, RN RN Juve Ramon MD MD rt
[2022-11-29 10:18] VITALS: TEMP 100.4
[2022-11-29 10:19] VITALS: O2SAT 99
[2022-11-29 10:21] VITALS: BP 114/80
== END 2022-11-29 09:54 | disposition home or self-care (01) ==
LOC: ER 07:41
DX: J03.00 Acute streptococcal tonsillitis, unspecified (principal); I10 Essential (primary) hypertension; I47.1 Supraventricular tachycardia; Z88.5 Allergy status to narcotic agent
CPT/HCPCS: 85025; 36415; 83605; 80053; 70491; 96375; 96374; 99284; J1100; J7030